=== PATIENT | female | born 1945 | race Caucasian/White ===

== ENCOUNTER 2019-01-20 06:03 | Inpatient (IN) ==
--- NOTE | 2019-01-15 17:30 | EKG Report ---
Test Performed on : 01/15/2019 5:09:17 PM Test Reason : PAT Blood Pressure : / mmHG Vent. Rate : 082 BPM Atrial Rate : 082 BPM P-R Int : 190 ms QRS Dur : 074 ms QT Int : 402 ms P-R-T Axes : 102 131 173 degrees QTc Int : 469 ms Suspect arm lead reversal, interpretation assumes no reversal Normal sinus rhythm. Lateral infarct , age undetermined Abnormal ECG No previous ECGs available Confirmed by Dejon Cheung MD ([id number]) on 01/16/2019 9:00:46 AM
[2019-01-15 17:39] LABS: URINE SOURCE CLEAN CATCH
[2019-01-15 17:42] LABS: BILIRUBIN URINE SMALL (NEGATIVE); BLOOD URINE TRACE (NEGATIVE); COLOR ORANGE; GLUCOSE URINE NEGATIVE (NEGATIVE); KETONE URINE NEGATIVE (NEGATIVE); LEUKOCYTES URINE LARGE (NEGATIVE); NITRITE URINE POSITIVE (NEGATIVE); PH URINE 5.5; PROTEIN URINE NEGATIVE (NEGATIVE); SP GRAVITY URINE 1.012; TURBIDITY URINE CLEAR (CLEAR); UR EPITHELIAL CELLS <10 /HPF (<10); URINE BACTERIA NEGATIVE /HPF; URINE RBC <10 /HPF (<10); URINE WBC TNTC /HPF (<10); UROBILINOGEN URINE 2 mg/dL (NORMAL)
[2019-01-15 17:51] LABS: INR 0.99; PROTIME 13.1 Seconds (11.0-16.0)
[2019-01-15 17:52] LABS: PTT 22.5 Seconds (22.3-41.8)
[2019-01-15 17:57] LABS: HEMOGLOBIN A1C 5.9 % (4.8-6.0)
[2019-01-15 18:04] LABS: HEMATOCRIT 40.5 % (37.0-47.0); HEMOGLOBIN 13.2 g/dL (12.0-16.0); MCH 26.2 PG (27-31); MCHC 32.6 g/dL (33-37); MCV 80.4 FL (81-99); MPV 9.9 FL (7.4-10.4); PLT 215 X1000 (130-400); RBC 5.04 XMIL (4.2-5.4); RDW 16.2 % (11.5-14.5); WBC 23.16 X1000 (4.8-10.8)
[2019-01-15 18:14] LABS: SODIUM 139 mmol/L (136-145)
[2019-01-15 18:15] LABS: AGAP 12; BUN 15 mg/dL (8-22); CALCIUM 9.3 mg/dL (8.8-10.2); CHLORIDE 101 mmol/L (98-107); COSMO 282; CREATININE 0.6 mg/dL (0.5-0.9); ESTIMATED GFR > 60; GLUCOSE 159 mg/dL (70-104); POTASSIUM 3.4 mmol/L (3.5-5.1); TCO2 26 mmol/L (25-35)
[2019-01-15 18:53] LABS: EOS 1 % (1-10); LYMPHS 77 % (21-51); MONO 6 % (1-9); SEGS 16 % (42-75)
[2019-01-20] MEDS ORDERED: DIPRIVAN 1% ONE (06:36)
[2019-01-20] MEDS ORDERED: PEPCID ONE (06:50)
[2019-01-20] MEDS ORDERED: REGLAN ONE (06:50)
[2019-01-20] MEDS ORDERED: COLACE ONE (06:50)
[2019-01-20] MEDS ORDERED: EXPAREL 1.3% ONE (06:51)
[2019-01-20] MEDS ORDERED: DURAMORPH ONE (06:51)
[2019-01-20] MEDS ORDERED: SODIUM CHLORIDE 0.9% ONE (06:51)
[2019-01-20] MEDS ORDERED: CELEBREX ONE (06:51)
[2019-01-20] MEDS ORDERED: LYRICA ONE (06:51)
[2019-01-20] MEDS ORDERED: MARCAINE 0.25% PF ONE (06:51)
[2019-01-20] MEDS ORDERED: VANCOMYCIN ONE (06:51)
[2019-01-20] MEDS ORDERED: TORADOL ONE (06:51)
[2019-01-20] MEDS ORDERED: KEFZOL 1 GM/D5W 1 GM/50 ML IVPB ONE (06:52)
[2019-01-20] MEDS ORDERED: LR 1,000 ML ONE (06:53)
[2019-01-20] MEDS ORDERED: FENTANYL ONE (07:26)
[2019-01-20] MEDS: CYKLOKAPRON 1,000 MG/NS 2,000 MG/200 ML IVPB ONE ×2 (08:00→09:18)
[2019-01-20] MEDS ORDERED: ROBINUL ONE (08:09)
[2019-01-20 08:28] LABS: URINE SOURCE CATH
[2019-01-20 08:33] LABS: BILIRUBIN URINE NEGATIVE (NEGATIVE); BLOOD URINE SMALL (NEGATIVE); COLOR YELLOW; GLUCOSE URINE NEGATIVE (NEGATIVE); KETONE URINE NEGATIVE (NEGATIVE); LEUKOCYTES URINE NEGATIVE (NEGATIVE); NITRITE URINE NEGATIVE (NEGATIVE); PH URINE 6.5; PROTEIN URINE TRACE mg/dL (NEGATIVE); SP GRAVITY URINE 1.017; TURBIDITY URINE CLEAR (CLEAR); UROBILINOGEN URINE NORMAL (NORMAL)
[2019-01-20 08:35] LABS: UR EPITHELIAL CELLS >10 /HPF (<10); URINE BACTERIA NEGATIVE /HPF; URINE RBC <10 /HPF (<10); URINE WBC <10 /HPF (<10)
[2019-01-20] MEDS ORDERED: ZOFRAN ONE (08:38)
[2019-01-20] MEDS ORDERED: DECADRON ONE (08:38)
[2019-01-20] MEDS ORDERED: OFIRMEV 1000 MG/ISOTONIC SOLN 1,000 MG/100 ML BOTTLE ONE (08:38)
[2019-01-20 08:50] LABS: HEMATOCRIT 37.4 % (37.0-47.0); HEMOGLOBIN 11.8 g/dL (12.0-16.0); MCH 25.9 PG (27-31); MCHC 31.6 g/dL (33-37); MPV 10.3 FL (7.4-10.4); PLT 209 X1000 (130-400); RBC 4.56 XMIL (4.2-5.4); RDW 15.6 % (11.5-14.5); WBC 18.27 X1000 (4.8-10.8)
[2019-01-20 08:58] LABS: EOS 2 % (1-10); SEGS 16 % (42-75)
[2019-01-20 08:59] LABS: LYMPHS 78 % (21-51)
[2019-01-20] MEDS ORDERED: EPHEDRINE ONE (08:59)
--- NOTE | 2019-01-20 09:40 | OPERATIVE NOTE ---
PROCEDURE DATE: 01/20/2019 PREOPERATIVE DIAGNOSIS: Left knee degenerative joint disease. POSTOPERATIVE DIAGNOSIS: Left knee degenerative joint disease. PROCEDURE PERFORMED: Left total knee arthroplasty using a [employer] size 5 femoral component, size 5 tibial base plate, 16 mm articular insert, and a 32 mm patellar component. ANESTHESIA: Spinal. SURGEON: Waldo Villanueva M.D. MANAGER VAN: KURT Grubbs. COMPLICATIONS: None. BLOOD LOSS: Minimal. TOURNIQUET TIME: Approximately 1 hour. DESCRIPTION OF PROCEDURE: The patient was brought to the operative suite and placed in the supine position. After successful administration of spinal anesthesia, a well-padded tourniquet was placed on the left proximal thigh. The left lower extremity was prepped and draped in the usual sterile fashion. Leg was exsanguinated. Tourniquet was insufflated to 350 torr. A longitudinal incision was made, beginning at the superior pole of the patella, and extended distally to the tibial tuberosity. A medial arthrotomy was made. The medial capsule was elevated off the medial tibial plateau. The ACL, PCL, medial meniscus, and lateral meniscus were excised. A drill was entered in the distal femur. Intramedullary guide was placed. Distal cutting block was pinned in place. Distal cut made with oscillating saw. The femur was sized to a size 5. A size 5 cutting block was pinned into place, and anterior cuts, chamfer cuts, and posterior condylar cuts were made with oscillating saw. Marginal osteophytes were removed with a rongeur. A box cutting block was pinned into place. Box cut was made with a box osteotome and also an oscillating saw. Posterior condylar osteophytes were removed with a curved osteotome and rongeur. Attention was directed to the tibia. A drill was entered into the tibia. Intramedullary guide was placed. Alignment was checked with drop milind referencing off the anterior cortex, tibia, and second ray of the foot, taking 4 mm off the low side of the tibia, which in this case was medially. The articular surface of the tibial plateau was removed with an oscillating saw. Extension gap was found to be tight medially. A medial release was performed, and then it was balanced at 16 mm. The tibia was sized to a size 5. A size 5 guide was used for the pin punch. The tibial trial, femoral trial, and 16 mm articular insert were placed and taken through range of motion and found to have excellent alignment, balancing, and range of motion. Attention was directed to the patella. Then, 9 mm of the articular surface of the patella were removed with an oscillating saw. The patella was sized to a size 32. A size 32 guide was used to drill peg holes. The lateral facet was chamfered 30 to 45 degrees. Patella trial was placed, taken through range of motion, found to have excellent patella tracking. All trials were then removed. The knee was copiously irrigated and dried, being certain all bone debris was removed. The tibial component, femoral component, and patellar component were cemented into place. Excess cement was removed with the [place]. Once the cement had hardened, excess cement was again removed with an osteotome. The knee was again copiously irrigated and dried, being certain all bone and cement debris were removed. The trial articular insert was removed. The knee was copiously infiltrated with Exparel, including the posterior capsule, anterior capsule, intramuscular, and subcutaneous tissue. The tourniquet was deflated, and hemostasis was obtained with electrocautery. The definitive 16 mm articular insert was locked into place, and then the knee was again taken through range of motion, and again found to have excellent alignment, balancing, range of motion, patellar tracking. The medial arthrotomy was closed with 0 V-Loc. Skin edge was approximated with 2-0 Vicryl. The skin was closed with a Prineo, and a sterile dressing was applied. The patient tolerated the procedure well without complication. At the end of the procedure, all counts were correct x2. The patient was transferred to the recovery room in stable condition. cc: Waldo Villanueva MD [facility]
[2019-01-20] MEDS ORDERED: NS 1,000 ML ONE (10:23)
[2019-01-20] MEDS ORDERED: OXY IR ONE (10:23)
[2019-01-20] MEDS ORDERED: OXY IR PO PRN (10:30)
[2019-01-20] MEDS ORDERED: MORPHINE IV PRN ×3 (10:30)
[2019-01-20] MEDS ORDERED: ZOFRAN IV PRN (10:30)
[2019-01-20] MEDS ORDERED: MILK OF MAGNESIA PO PRN (10:30)
[2019-01-20] MEDS: OXY IR PO PRN ×2 (13:59→23:28)
[2019-01-20] MEDS: KEFZOL 1 GM/D5W 1 GM/50 ML IVPB IV SCH ×2 (15:25→23:28)
[2019-01-20] MEDS: TYLENOL PO SCH ×2 (15:26→21:52)
[2019-01-20] MEDS: NS 1,000 ML IV SCH ×2 (15:26→21:55)
[2019-01-20] MEDS: ULTRAM PO SCH ×2 (15:26→21:53)
[2019-01-20] MEDS: GLUCOPHAGE PO SCH (18:31)
[2019-01-20] MEDS: PERIDEX MT SCH (21:49)
[2019-01-20] MEDS: CELEBREX PO SCH (21:49)
[2019-01-20] MEDS: FISH OIL CONCENTRATE PO SCH (21:50)
[2019-01-20] MEDS: ZOCOR PO SCH (21:52)
[2019-01-20] MEDS: LYRICA PO SCH (21:52)
[2019-01-20] MEDS: EVISTA PO SCH (21:52)
[2019-01-20] MEDS: CLARITIN PO SCH (21:52)
[2019-01-20] MEDS: COLACE PO SCH (21:52)
[2019-01-20] MEDS: CITRACAL + D PO SCH (21:52)
[2019-01-20] MEDS: COMBIGAN OPHTH SOLN LEFT EYE SCH (21:56)
[2019-01-21] MEDS: TYLENOL PO SCH ×2 (03:26→10:45)
[2019-01-21] MEDS: ULTRAM PO SCH ×2 (03:27→10:46)
[2019-01-21] MEDS: OXY IR PO PRN ×3 (05:45→20:24)
[2019-01-21] MEDS: NS 1,000 ML IV SCH (05:52)
[2019-01-21 06:31] LABS: AGAP 12; BUN 11 mg/dL (8-22); CALCIUM 7.9 mg/dL (8.8-10.2); CHLORIDE 101 mmol/L (98-107); COSMO 277; CREATININE 0.7 mg/dL (0.5-0.9); ESTIMATED GFR > 60; GLUCOSE 133 mg/dL (70-104); POTASSIUM 3.7 mmol/L (3.5-5.1); SODIUM 138 mmol/L (136-145); TCO2 25 mmol/L (25-35)
[2019-01-21] MEDS ORDERED: SALINE LOCK IV FLUID XX ONE (08:40)
[2019-01-21] MEDS ORDERED: ASPIRIN PO SCH (09:00)
[2019-01-21] MEDS ORDERED: DECADRON IV ONE (09:00)
[2019-01-21] MEDS: LOZOL PO SCH (10:45)
[2019-01-21] MEDS: CELEBREX PO SCH (10:45)
[2019-01-21] MEDS: VITAMIN B-12 PO SCH (10:45)
[2019-01-21] MEDS: PERIDEX MT SCH ×2 (10:45→20:23)
[2019-01-21] MEDS: ZETIA PO SCH (10:45)
[2019-01-21] MEDS: CITRACAL + D PO SCH ×2 (10:45→20:23)
[2019-01-21] MEDS: LYRICA PO SCH (10:46)
[2019-01-21] MEDS: GLUCOPHAGE PO SCH ×2 (10:46→18:15)
[2019-01-21] MEDS: PEPCID PO SCH (10:46)
[2019-01-21] MEDS: COLACE PO SCH ×2 (10:46→20:24)
[2019-01-21] MEDS: COZAAR PO SCH (10:46)
[2019-01-21] MEDS: COMBIGAN OPHTH SOLN LEFT EYE SCH ×2 (10:47→21:00)
[2019-01-21] MEDS: FISH OIL CONCENTRATE PO SCH ×2 (10:47→20:41)
[2019-01-21] MEDS: ZOFRAN ODT PO PRN (11:42)
[2019-01-21] MEDS ORDERED: TYLENOL PO PRN (12:42)
[2019-01-21] MEDS ORDERED: ULTRAM PO PRN (12:42)
[2019-01-21] MEDS ORDERED: CELEBREX PO PRN (12:42)
[2019-01-21] MEDS: EVISTA PO SCH (20:23)
[2019-01-21] MEDS: CLARITIN PO SCH (20:24)
[2019-01-21] MEDS: ZOCOR PO SCH (20:24)
[2019-01-22] MEDS: OXY IR PO PRN (06:22)
[2019-01-22 07:14] LABS: HEMATOCRIT 29.8 % (37.0-47.0); HEMOGLOBIN 9.4 g/dL (12.0-16.0)
[2019-01-22] MEDS: PERIDEX MT SCH (09:53)
[2019-01-22] MEDS: VITAMIN B-12 PO SCH (09:54)
[2019-01-22] MEDS: CITRACAL + D PO SCH (09:54)
[2019-01-22] MEDS: PEPCID PO SCH (09:54)
[2019-01-22] MEDS: ZETIA PO SCH (09:54)
[2019-01-22] MEDS: COZAAR PO SCH (09:55)
[2019-01-22] MEDS: LOZOL PO SCH (09:55)
[2019-01-22] MEDS: GLUCOPHAGE PO SCH (09:55)
[2019-01-22] MEDS: COLACE PO SCH (09:55)
[2019-01-22] MEDS: FISH OIL CONCENTRATE PO SCH (09:55)
[2019-01-22] MEDS: COMBIGAN OPHTH SOLN LEFT EYE SCH (09:56)
[2019-01-22] MEDS: ZOFRAN ODT PO PRN (10:09)
--- NOTE | 2019-01-22 10:54 | ORTHOPAEDICS PROGRESS NOTE ---
DATE: 01/21/2019 SUBJECTIVE: Ms. Mares is a 73-year-old female who is postoperative day 1 from a left total knee arthroplasty. She complains of minimal pain, but is complaining of significant nausea. She has thrown up several times while trying to attempt to ambulate. She is doing well as far as her knee is concerned. OBJECTIVE: She is a well-developed, well-nourished female. She is alert and oriented and cooperative with exam. She does have some mild bleeding from her wound. We placed a compression dressing. Her leg is neurovascularly intact. Her calf is soft. IMPRESSION: Stable left total knee arthroplasty with intractable nausea. PLAN: I think she still requires inpatient hospital care due to her nausea and continued bleeding. We have discontinued medications that may cause bleeding or nausea. Hopefully tomorrow, we will be able to discharge her home. cc: Waldo Villanueva MD
[2019-01-22 12:29] VITALS: BP 104/51
--- NOTE | 2019-01-22 14:14 | DISCHARGE SUMMARY ---
ADMISSION DATE: 01/20/2019 DISCHARGE DATE: 01/22/2019 DISCHARGE DIAGNOSIS: Left knee degenerative joint disease status post left total knee arthroplasty. DISCHARGE MEDICATION: See discharge medication list. DISPOSITION: The patient discharged home with home physical therapy. Instructed to return see Dr. Villanueva for any signs of infection, deep venous thrombosis. Instructed to return to see Dr. Villanueva prior to going to the emergency room. HOSPITAL COURSE: On the day of admission, patient underwent a left total knee arthroplasty. Her postoperative course was complicated by postoperative nausea and continued mild bleeding of her wound. We discontinued medications that might cause her nausea and bleeding and it subsequently improved, although she does have a history of vertigo that is contributing to her dizziness and nausea. At discharge, she is afebrile, tolerating a regular diet, ambulating well with physical therapy. Her wound is clean, dry, clean, dry, and intact without sign of infection. DISPOSITION: She is discharged home in stable condition with instructions to follow up as described above. cc: Waldo Villanueva MD
== END 2019-01-22 12:42 | disposition home or self-care (01) | DRG 470 ==
LOC: OR 06:03 → 4N 06:03
PROVIDERS: ADMIT Orthopaedic Surgery; ATTEND Orthopaedic Surgery